=== PATIENT | male | born 1955 | race Caucasian/White ===

== ENCOUNTER → 2017-04-13 | Day surgery (SDC) | payer MEDICARE, MEDICAID | LOC: MSO 07:42 | DX: H25.11 Age-related nuclear cataract, right eye (principal); J44.9 Chronic obstructive pulmonary disease, unspecified; F25.0 Schizoaffective disorder, bipolar type; F17.210 Nicotine dependence, cigarettes, uncomplicated | CPT/HCPCS: 00142; A9270-GY; J0171; J2550; J3010; V2632; V2797 ==